=== PATIENT | female | born 1945 | race Caucasian/White ===

== ENCOUNTER 2024-01-31 01:13 | Outpatient (RCR) | payer MEDICARE, MEDICAID, SELFPAY ==
[2024-01-31 08:52] LABS: Abs Immature Grans 0.05 10^3/uL (0.0-0.06); Absolute Basophil Count 0.04 10^3/uL (0.0-0.2); Absolute Eosinophil Count 0.11 10^3/uL (0.0-0.7); Absolute Lymphocyte Count 1.74 10^3/uL (1.2-3.4); Absolute Monocyte Count 0.57 10^3/uL (0.1-0.8); Absolute Neutrophil Count 6.78 10^3/uL (1.2-6.7); Basophils % 0.4 %; Eosinophils % 1.2 %; HGB 12.7 g/dL (11.2-15.7); Immature Grans % 0.5 %; Lymphocytes % 18.7 %; MCH 29.7 pg (27.0-33.0); MCHC 33.4 % (32.0-36.0); MCV 89 fL (80-95); MPV 9.2 fL (8.0-11.0); Monocytes % 6.1 %; Neutrophils % 73.1 %; Platelet Count 242 10^3/uL (130-400); RBC 4.28 10^6/uL (3.93-5.22); RDW 12.9 % (11.7-14.6); WBC 9.29 10^3/uL (4.4-10.8)
[2024-01-31 09:07] LABS: ALT 52 U/L (14-59); AST 24 U/L (15-37); Albumin 3.1 g/dL (3.4-5.0); Alkaline Phosphatase 123 U/L (46-116); Anion Gap 8.4 mmol/L (3-11); BUN 24 mg/dL (7-18); Bilirubin, Total 0.53 mg/dL (0.2-1.0); CO2 30.6 mmol/L (21.0-32.0); CREATININE 0.7 mg/dL (0.55-1.02); Calcium 9.1 mg/dL (8.5-10.1); Chloride 101 mmol/L (98-107); Estimated GFR 87.92 (mL/min/1.73m2); Glucose 96 mg/dL (74-106); Potassium 3.1 mmol/L (3.5-5.1); Sodium 140 mmol/L (136-145); Total Protein 6.9 g/dL (6.4-8.2)
[2024-01-31] MEDS: Normal Saline Flush 10 ML SYR IVP (14:39)
[2024-01-31 18:40] LABS: CA 125 234 U/mL (<30)
== END 2024-02-03 23:59 | disposition home or self-care (01) ==
LOC: INF 01:13
PROVIDERS: PCP Nurse Practitioner; Visit Provider Obstetrics & Gynecology Gynecologic Oncology
DX: C56.3 Malignant neoplasm of bilateral ovaries (principal); C80.0 Disseminated malignant neoplasm, unspecified
CPT/HCPCS: 36591; 80053; 86304; 85025